=== PATIENT | female | born 1970 | race Two or more races ===

== ENCOUNTER 2018-06-03 13:26 | Outpatient (CLI) | payer OTHER | END 2018-06-03 13:34 | disposition home or self-care (01) | LOC: SONOGRAMA 13:26 | DX: N91.1 Secondary amenorrhea (principal) ==

== ENCOUNTER 2019-08-22 14:07 | Outpatient (CLI) | payer OTHER | END 2019-08-22 14:16 | disposition home or self-care (01) | LOC: RAD 14:07 | DX: M79.671 Pain in right foot (principal) ==